=== PATIENT | female | born 1965 | race Caucasian/White ===

== ENCOUNTER → 2017-04-19 | Outpatient (CLI) | payer BC ==
[~2017-04-19] MED LIST: APIX5TAB PO; FOLI-68 PO; IOPAMIDOL 76% 75 ML INFUS BTL 75 ML ONE; NS 0.9% 20 ML SDV 100 ML ONE
--- NOTE | 2017-04-19 16:25 | RADIOLOGY IMAGING REPORT ---
FACILITY: [facility] - [place] PATIENT NAME: Lin Robbins : 1965 MR: [id number] V: [id number] EXAM DATE: ORDERING PHYSICIAN: TATY RHOADES TECHNOLOGIST: Location: [facility] [place] Patient: Lin Robbins : 1965 Visit/Account:[id number] Date of Sevice: 04/19/2017 EXAMINATION: CTA of the chest with IV contrast HISTORY: Cough and shortness of breath. TECHNIQUE: Pulmonary embolus protocol - Thin axial CT images of the chest were obtained with IV con trast during maximal pulmonary arterial opacification. Reconstruction of the source data includes mul tiplanar 2D coronal and sagittal reconstructed images, and 3D coronal and sagittal MIP images. Repres entative images have been stored on PACS. One of the following dose optimization techniques was utilized in the performance of this exam: Autom ated exposure control; adjustment of the mA and/or kV according to the patient's size; or use of an i terative reconstruction technique. Specific details can be referenced in the facility's radiology C T exam operational policy. Contrast: 75 mL of IV Isovue-370. COMPARISON: 08/04/2016 and 05/26/2016. FINDINGS: Pulmonary arteries: The pulmonary arteries are well opacified, without suspicious filling defect. Heart, aorta, and great vessels: Normal caliber thoracic aorta, without aneurysm or dissection. Norm al heart size. No pericardial effusion. Lungs and pleura: Stable small calcified granulomas in both lungs. No new focal consolidation. The c entral airways are patent. No pleural effusion or pneumothorax. Mediastinum and michele: Small hiatal hernia. Stable small calcified hilar and mediastinal lymph nodes compatible with old granulomatous disease. Visualized upper abdomen: Unremarkable. Chest wall: Negative. Bones: Negative. IMPRESSION: 1. No evidence of pulmonary embolism. 2. No other acute findings in the chest. No new focal consolidation. 3. Sequela of old granulomatous disease in the chest. Report Dictated By: Filemon Mcgee MD at 04/19/2017 4:17 PM Report E-Signed By: Filemon Mcgee MD at 04/19/2017 4:22 PM WSN:[id number]
--- NOTE | 2017-04-19 16:55 | Oncology Note ---
Patient called the clinic today to report that she was having tightness of the chest and increased shortness of breath over the weekend. She felt that her symptoms were not improving. Patient shares that she had a prior history of a pulmonary embolism and symptoms felt very similar to when she was diagnosed. Patient continues on eliquis twice daily. CT angiogram was completed for cough and shortness of breath. Patient is called with results today. There is no evidence of a pulmonary embolism, no other acute findings in the chest. No new focal consolidation. There is sequela of old granulomatous disease in the chest. Patient reports that [place] was [place] the [place] and when she returned she followed with her primary care provider for upper respiratory infection symptoms. She was started on antibiotics. She has completed the antibiotics but feels that her symptoms have not resolved. Patient is referred back to her primary care provider since this person initially assessed the patient and would have documentation of symptoms and the ability to compare symptoms today. This provider also knows which antibiotic the patient had been on. Patient verbalized understanding. TATY RHOADES-BC, ONC Apr 19, 2017 16:55
== END ==
LOC: CT 14:24
PROVIDERS: ATTEND Nurse Practitioner Family
DX: I26.99 Other pulmonary embolism without acute cor pulmonale (principal); R06.02 Shortness of breath
CPT/HCPCS: 71275; J7050; Q9967

== ENCOUNTER 2017-05-23 08:00 | Outpatient (RCR) | payer BC ==
--- NOTE | 2017-02-25 08:38 | ONCOLOGY FOLLOW UP NOTE ---
EVENT DATE: February 07, 2017 CHIEF COMPLAINT/REASON FOR VISIT Ms. Robbins is a very pleasant 51-year-old patient here for pulmonary embolism and hypercoagulable state. HISTORY OF PRESENT ILLNESS Ms. Robbins returns. She has a known heterozygosity for MTHFR mutation (C677T ). 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 She was on Eliquis at the time though, and these can cause false positive for lupus antibodies. The PE event occurred after prolonged air travel and an estrogen replacement patch in May 2016. In December 2016 she required a colonoscopy due to the family history of colon polyps. She stopped the eliquis for a week and we retested her for antiphospholipid antibodies at that time including hexagonal phase. All of these were negative. Thus she does not have antiphospholipid antibody syndrome. I am concerned that this may have been a false positive or a transient lupus antibody. Discussed options for her, which include continuing indefinite anticoagulation with Eliquis, and she is leaning toward this. Another option would be to switch to aspirin therapy with B12 and folate supplementation given her MTHFR mutation. After discussion today she would like to continue Eliquis, which is very reasonable. Currently she feels well. She does have some mild edema in the legs since May in both legs, and is using compression stockings with some relief. PAST MEDICAL HISTORY 1. Beta thalassemia trait. 2. Pulmonary embolism while she was on estrogen replacement patches. 3. History of diverticulitis. PAST SURGICAL HISTORY 1. Total abdominal hysterectomy with bilateral salpingo-oophorectomy. 2. x1. FAMILY HISTORY Father had beta thalassemia trait. Paternal grandfather had lung cancer. Maternal aunt had breast cancer. Mother had blood clots in her legs. Colon cancer is in the family as well. SOCIAL HISTORY The patient is with two sons. 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 She denies any abuse of tobacco. She drinks wine occasionally. No abuse of illicit drugs. CURRENT MEDICATIONS 1. Eliquis 5 mg twice daily. 2. Cough syrup with codeine. 3. Codeine to control her cough. ALLERGIES No known drug allergies. REVIEW OF SYSTEMS CONSTITUTIONAL: No fevers, chills, significant weight change. HEENT: No headache or vision changes. CARDIOVASCULAR: No chest pain or dyspnea on exertion. She does have 1+ edema in the legs bilaterally she states at times. RESPIRATORY: Cough has resolved. She presented with cough as her presenting symptom without any chest pressure or shortness of breath or pain. None currently thought. GASTROINTESTINAL: No nausea, vomiting or diarrhea. GENITOURINARY: No dysuria or hematuria. MUSCULOSKELETAL: No weakness, joint pain. PSYCHIATRIC: No anxiety, depression. SKIN: No concerning rash on the Eliquis. She does get rashes intermittently. HEMATOLOGICAL/LYMPHATIC: Easy bruising especially on Eliquis. No infection or bleeding issues. The remainder of the 14-point review of systems is otherwise negative. PHYSICAL EXAMINATION VITAL SIGNS: Blood pressure 120/79, pulse 90, respiratory rate 16, temperature 97.0 degrees Fahrenheit, oxygen saturation 93% on room air. Weight 84.1 kg. Pain 0/10, fatigue 0/10. GENERAL: In stable condition, resting comfortably in the chair. HEENT: Normocephalic, atraumatic. SKIN: No concerning rashes. EXTREMITIES: She has compression stockings on. No significant edema present. PSYCHIATRIC: Normal mood and affect. Remainder of full physical exam deferred today to amount of time spent in counseling and coordination of care. IMPRESSION AND PLAN Ms. Robbins is a very pleasant 51-year-old female with the followin. Provoked deep venous thrombosis pulmonary embolus in May 2016 due to estrogen replacement (now discontinued), significant air travel, heterozygosity for MTHFR mutation. 2. Hypocoagulable state with MTHFR mutation, on B12 and folate supplementation. 3. History of lupus antibody. This may be a false positive. I do not believe she has antiphospholipid antibodies as we held her Eliquis for a week and tested her again. This was negative with that repeat test. 4. I counseled her extensively about the pros and cons of her different options outlined above in the HPI. She would like to continue the Eliquis and this is very reasonable. We will see her annually. Advised her to seek medical care if she has any symptoms of concern, and discussed these, such as edema, pain, swelling in the leg or any respiratory symptoms of concern. She expresses understanding and agreement. Billing: Return visit level 5. Total time 45 minutes, counseling time 30. High risk, high complexity. CLARICE
[2017-05-17 11:55] VITALS: BP 155/76
[2017-05-17 12:20] LABS: PLATELET COUNT, AUTOMATED 163 K/uL (150-450)
[~2017-05-23] VITALS: Ht 170.2 cm; Wt 83.0 kg
[~2017-05-23 08:00] MED LIST changes: -IOPAMIDOL 76% 75 ML INFUS BTL 75 ML ONE; -NS 0.9% 20 ML SDV 100 ML ONE
[2017-05-23 08:06] VITALS: BP 126/77
--- NOTE | 2017-05-24 04:36 | [facility] ONCOLOGY NOTE ---
EVENT DATE: May 23, 2017 CHIEF COMPLAINT/REASON FOR VISIT The patient is a pleasant 51-year-old female with a history of MTHFR mutation and PE on Eliquis who presents with cough, raspy voice after a recent infection. HISTORY OF PRESENT ILLNESS The patient returns. She has a known heterozygosity for MTHFR mutation (C677T) . 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 However, she was on Eliquis at the time. This can cause a false positives for lupus antibodies. We repeated the study in December 2016 during a one week break in preparation for colonoscopy, and she did well. This included hexagonal phase testing, and these were all negative. Thus she does not have antiphospholipid antibody syndrome. She had an infection after travel in March of 2016. She came back with shortness of breath and cough that has persisted. This is her chief complaint today. She has followup with pulmonary later this month, which is her most important issue today. We did get a CT angiogram to make sure she did not have recurrent PE, and this was negative. She does have a known history of beta thalassemia trait, but I also suspect she may have some mild iron deficiency. She does not take iron supplements, as it "does not work". I answered all of her many questions today, many related to general medical issues. She has seen Dr. Kim for these issues already, but wanted our opinion as well. PAST MEDICAL HISTORY 1. Beta thalassemia trait. 2. Pulmonary embolism while she was on estrogen replacement patches. 3. History of diverticulitis. PAST SURGICAL HISTORY 1. Total abdominal hysterectomy with bilateral salpingo-oophorectomy. 2. x1. FAMILY HISTORY Father had beta thalassemia trait. Paternal grandfather had lung cancer. Maternal aunt had breast cancer. Mother had blood clots in her legs. Colon cancer is in the family as well. SOCIAL HISTORY The patient is with two sons. 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 She denies any abuse of tobacco. She drinks wine occasionally. No abuse of illicit drugs. CURRENT MEDICATIONS 1. Eliquis 5 mg twice daily. 2. Folic acid 1 mg daily. ALLERGIES No known drug allergies. REVIEW OF SYSTEMS CONSTITUTIONAL: No fevers, chills, weight change. HEENT: No headache or vision changes. CARDIOVASCULAR: No chest pain, dyspnea on exertion or edema. RESPIRATORY: No shortness of breath at rest. Positive dyspnea on exertion and cough. This has been after a recent significant infection and may simply need time to resolve, no hemoptysis. GASTROINTESTINAL: No nausea or vomiting. GENITOURINARY: No dysuria or hematuria. MUSCULOSKELETAL: No weakness or joint pain. PSYCHIATRIC: No anxiety or depression. ENDOCRINE: No heat or cold intolerance. The remainder of the 14-point review of systems is otherwise negative. PHYSICAL EXAMINATION VITAL SIGNS: Blood pressure 126/84, pulse 77, respiratory rate 16, temperature 96.9 Fahrenheit, oxygen saturation 96% on room air. Weight 83 kg. Pain 0/10, fatigue 5/10. GENERAL: Stable condition, resting comfortably in the chair. HEENT: Normocephalic, atraumatic. LUNGS: No respiratory distress. EXTREMITIES: No clubbing, cyanosis or edema. SKIN: No concerning rashes. LYMPHATIC: Trace edema in the ankles, wearing compression socks to resolve this. Remainder of physical exam otherwise unremarkable. IMPRESSION AND PLAN The patient is a pleasant 51-year-old female with the followin. Provoked deep venous thrombosis and pulmonary embolus in May 2016 due to estrogen replacement, now discontinued, significant air travel, heterozygosity for MTHFR mutation. 2. Hypercoagulable state with MTHFR mutation, on folate and B12 supplement. 3. History of lupus antibody, likely a false positive due to Eliquis. Repeat testing was negative in December 2016. I reassured her. I had an extensive discussion about her treatment options. Her biggest concern is avoiding blood clots, and so we will continue Eliquis indefinitely. She understands that she is a borderline candidate for indefinite anticoagulation, but it is reasonable. Also switching to a daily aspirin would be reasonable as well, as many of her risk factors are improved or resolved. She is avoiding estrogen replacement. I answered all of her many questions today. I recommend she follow up with pulmonary and may need to consider pulmonary rehab, however, I suspect she is just having a prolonged recovery from an infection in March. I answered all of her questions today. Billing: Return visit level 4. Total time 30 minutes, counseling time 20. MTDD
== END 2017-06-15 14:32 | disposition home or self-care (01) ==
LOC: ONC 08:00
PROVIDERS: ATTEND Internal Medicine
DX: I26.99 Other pulmonary embolism without acute cor pulmonale (principal); Z86.718 Personal history of other venous thrombosis and embolism; Z79.01 Long term (current) use of anticoagulants; R05 Cough; R06.02 Shortness of breath
CPT/HCPCS: 36415; 82040; 82247; 82310; 82374; 82435; 82565; 82607; 82746; 82947; 83090; 84075; 84132; 84155; 84295; 84450; 84460; 84520; 85025; 99212

== ENCOUNTER → 2017-09-15 | Outpatient (REF) | payer BC | LOC: ZZSENDIN 14:37 | PROVIDERS: ATTEND Family Medicine | DX: R05 Cough (principal) | CPT/HCPCS: 85379 ==

== ENCOUNTER → 2018-01-04 | Outpatient (CLI) | payer BC ==
--- NOTE | 2018-01-04 10:14 | RADIOLOGY IMAGING REPORT ---
FACILITY: [facility] - [place] PATIENT NAME: Lin Robbins : 1965 MR: [id number] V: [id number] EXAM DATE: ORDERING PHYSICIAN: ELE GRIER TECHNOLOGIST: Location: [facility] Patient: Lin Robbins : 1965 Visit/Account:[id number] Date of Sevice: 01/04/2018 KIDNEYS EXAMINATION: Renal ultrasound. History: Renal calculus COMPARISON STUDIES: CT abdomen pelvis the 2016 FINDINGS: Kidneys: Right kidney- 10.1 x 4.3 x 6.3 cm Left kidney- 10.8 x 6.9 x 6.5 cm Uniform and symmetric blood flow in each kidney by Doppler ultrasound. Hydronephrosis: Mild on the right Resistive index on the right 0.65 and on the left 0.55 Bladder: Urinary bladder prevoid volume 597 mL. Post void residual 37 mL. Bilateral ureteral jets a re present Abdominal aorta and IVC: Aorta and IVC are patent by Doppler ultrasound. IMPRESSION: Mild right hydronephrosis Report Dictated By: Stephie Gunn MD at 01/04/2018 9:59 AM Report E-Signed By: Stephie Gunn MD at 01/04/2018 10:09 AM WSN:[id number]
== END ==
LOC: US 00:39
PROVIDERS: ATTEND Urology
DX: N13.30 Unspecified hydronephrosis (principal)
CPT/HCPCS: 76705

== ENCOUNTER 2018-07-24 08:28 | Outpatient (RCR) | payer BC, OTHER ==
[2018-07-17 08:35] LABS: PLATELET COUNT, AUTOMATED 175 K/uL (150-450)
[2018-07-17 08:52] VITALS: BP 125/82
[2018-07-24 08:30] VITALS: BP 129/80
--- NOTE | 2018-07-25 05:22 | ONCOLOGY FOLLOW UP NOTE ---
EVENT DATE: July 24, 2018 CHIEF COMPLAINT/REASON FOR VISIT Ms. Robbins is a pleasant 52-year-old female with MTHFR mutation as well as pulmonary embolus on chronic Eliquis, here for followup. HISTORY OF PRESENT ILLNESS The patient returns. She has known heterozygosity for MTHFR mutation. 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 However, she was on Eliquis at that time, and there can be false positives. Repeat testing off of therapy was negative, including hexagonal-phase testing. Thus, I do not believe she has antiphospholipid antibody syndrome. She was quite concerned about the potential for the blood clots, and she chooses to continue Eliquis indefinitely, although she would be a candidate for discontinuation and switching to a daily aspirin. She was avoiding estrogen replacement, which was a risk factor for her pulmonary embolism as well. Despite being on Eliquis, she has an upcoming flight, and she is very fearful that she is going to get another blood clot. Reassured her today. Encouraged her to take her B12 and folate supplements -- she has only been taking folate. PAST MEDICAL HISTORY 1. Beta thalassemia trait. 2. Pulmonary embolism while she was on estrogen replacement patches. 3. History of diverticulitis. PAST SURGICAL HISTORY 1. Total abdominal hysterectomy with bilateral salpingo-oophorectomy. 2. x1. FAMILY HISTORY Father had beta thalassemia trait. Paternal grandfather had lung cancer. Maternal aunt had breast cancer. Mother had blood clots in her legs. Colon cancer is in the family as well. SOCIAL HISTORY The patient is with two sons. 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 She denies any abuse of tobacco. She drinks wine occasionally. No abuse of illicit drugs. CURRENT MEDICATIONS 1. Eliquis 5 mg twice daily. 2. Folic acid 1 mg daily. ALLERGIES No known drug allergies. REVIEW OF SYSTEMS CONSTITUTIONAL: No fevers, chills, weight change. HEENT: No headache or vision changes. NEUROLOGIC: The patient had a fall after tripping in the garage last week. I believe she had a mild concussion. Headaches are mild. Neuro exam noted below is negative. CARDIOVASCULAR: No chest pain, dyspnea on exertion, or edema. RESPIRATORY: No shortness of breath, wheeze, or cough. GASTROINTESTINAL: No nausea or vomiting. GENITOURINARY: No dysuria or hematuria. MUSCULOSKELETAL: No weakness or joint pain. PSYCHIATRIC: No anxiety or depression. No short-term memory loss or other issues after the fall. The remainder of the 14-point review of systems is otherwise negative, except for noted above in the HPI. PHYSICAL EXAMINATION VITAL SIGNS: Blood pressure 129/80, pulse 80, respiratory rate 16, temperature 97.7 Fahrenheit, oxygen saturation 95% on room air. Weight 80.3 kg. Pain 0/10, fatigue 6/10. GENERAL: Stable condition, resting comfortably in the chair. ECOG performance status is 0. NEUROLOGIC: No nystagmus or other concerns. No numbness. No motor deficits. No memory issues. No abnormalities on physical exam of the head. No bruising there. She does have a bruise on her left gomez. As she did feel dizzy and have a headache after the fall, I do think she had a concussion. At this time, I do not think imaging is required, as it has been over a week, she is improving, and her symptoms were mild. CARDIOVASCULAR: Regular rate and rhythm. SKIN: Other than the ecchymoses from the fall on the left gomez, no abnormalities. LYMPHATIC: Negative. EXTREMITIES: Without clubbing, cyanosis, or edema. She does wear compression hose. Remainder of physical exam otherwise unremarkable. IMPRESSION/REPORT/PLAN Ms. Robbins is a pleasant 52-year-old female with the followin. Provoked deep venous thrombosis and pulmonary embolus in May 2016 due to estrogen replacement, now discontinued, significant air travel, and heterozygosity for MTHFR mutation. She does not have antiphospholipid antibody syndrome. 2. Hypercoagulable state with MTHFR mutation, on folate. Recommend restarting B12 replacement. 3. History of lupus antibody, likely a false positive due to Eliquis. Repeat testing was negative in December 2016 off Eliquis. Reassurance. 4. Recent mild concussion from a fall. There was no prodrome. She tripped in the garage. She is recovering slowly. Answered all of her many questions today. They are moving to [place] and would like to be seen in my [place] clinic in the future. We would like to see annually, as she is choosing to be on chronic anticoagulation. This is a reasonable choice, although not required by guidelines. BILLING Return visit level 4. Total time 30 minutes, counseling time 20. MTDD
== END 2018-08-21 12:58 | disposition home or self-care (01) ==
LOC: ONC 08:28
PROVIDERS: ATTEND Internal Medicine
DX: I26.99 Other pulmonary embolism without acute cor pulmonale (principal); E72.12 Methylenetetrahydrofolate reductase deficiency; Z79.01 Long term (current) use of anticoagulants
CPT/HCPCS: 36415; 82607; 82728; 83090; 83540; 83550; 85025; 99212